=== PATIENT | male | born 1990 | race African-American/Black ===

== ENCOUNTER 2016-06-05 12:25 | Emergency (ER) | payer OTHER ==
[2016-06-05 13:08] VITALS: BP 144/91; PULSE 66; TEMP 97.9; BMI 28.2
--- NOTE | 2016-06-05 13:29 | PDOC ---
Post Exposure HPI - General Chief Complaint: Non EmpBld/Body Flud Exposure Stated Complaint: EXPOSURE TO TB Time Seen by Provider: 06/05/16 13:13 Past History - Past Medical History Allergies/Adverse Reactions: Allergies No Known Allergies Allergy (Verified 06/05/16 13:05) - Immunization History Immunizations Up to Date: Yes (NO FLU) - Social History Smoking Status: Current every day smoker Number of Ciarettes Per Day: 3 *Physical Exam - Vital Signs Last Vital Signs Temp Pulse Resp BP Pulse Ox 97.9 F 66 20 144/91 100 06/05/16 13:05 06/05/16 13:05 06/05/16 13:05 06/05/16 13:05 06/05/16 13:05 Medical Decision Making - Medical Decision Making 06/05/16 13:28 25-year-old male here for TB testing as was exposed to coworker who was recently diagnosed with TB as per patient. Denies any symptoms at this time, no cough, hemoptysis, shortness of breath, night sweats or weight loss. States his other coworkers are also pts today as they have also been exposed. Pt well latrice and stable w/ unremarkable exam. Pt informed that he will need PPD testing which is not routinely performed in ED and that he will need to follow up with his PMD for PPD placement and subsequent reading. Will do CXR today r/o active disease. 06/05/16 13:57 XR negative. Pt discharged with instructions to immediately f/u with PMD for PPD testing *DC/Admit/Observation/Transfer Diagnosis at time of Disposition: Exposure to TB - Discharge Dispostion Disposition: HOME Condition at time of disposition: Good - Referrals - Patient Instructions Additional Instructions: Please follow up with PMD for PPD testing. Your CXR was clear today - Post Discharge Activity Work/School Note: Back to Work
== END 2016-06-05 14:01 | disposition home or self-care (01) ==
LOC: JERFT 12:25
DX: Z20.1 Contact with and (suspected) exposure to tuberculosis (principal)
CPT/HCPCS: 71020-TC; 99281-25